=== PATIENT | male | born 1995 | race Hispanic/Latino ===

== ENCOUNTER 2018-02-13 14:06 | Observation (INO) | payer OTHER, SELFPAY ==
[2018-02-13] MEDS ORDERED: PROMETHAZINE 25 MG/ML VIAL ONE (14:19)
[2018-02-13] MEDS ORDERED: NA CHLORIDE 0.9% 1,000 ML ONE ×2 (14:19→14:39)
[2018-02-13 14:53] LABS: Absolute Lymphocytes (CBC) 1.5 K/uL (0.7-4.9); Absolute Monocytes 0.6 K/uL (0.1-1.3); Absolute Neutrophil 11.2 K/uL (1.8-8.0); Basophils % 0.3 % (0-1.3); Hematocrit 48.5 % (39.6-49.0); Lymphocytes % 11.2 % (15.3-44.8); MCH 30.9 pg (27.0-35.0); MCV 91.5 fL (80-100); MPV 8.7 fL (7.6-11.3); Monocytes % 4.2 % (3.3-12.3); RBC Red Blood Cell Count 5.31 M/uL (4.33-5.43)
[2018-02-13] MEDS ORDERED: ONDANSETRON 4 MG/2 ML VIAL ONE ×2 (14:58→21:56)
[2018-02-13 15:04] LABS: Bicarbonate 20 mEq/L (21-31); Glucose Level 87 mg/dL (65-120); Lipase 27 U/L (22-51); Potassium 3.3 mEq/L (3.6-5.0); Sodium Level 139 mEq/L (135-145)
[2018-02-13 15:10] LABS: ALT/SGPT 23 IU/L (10-60); AST/SGOT 34 IU/L (10-42); Albumin 4.9 g/dL (3.2-5.5); Alkaline Phosphatase 80 IU/L (42-121); BUN Blood Urea Nitrogen 17 mg/dL (6-20); Bilirubin Direct 0.2 mg/dL (0-0.2); Bilirubin Total 1.2 mg/dL (0.3-1.2); Protein, Total 7.5 g/dL (6.0-8.3)
[2018-02-13] MEDS ORDERED: MEPERIDINE HCL 25 MG/0.5 ML ONE (15:33)
--- NOTE | 2018-02-13 16:46 | RAD REPORT ---
EXAM DESCRIPTION: CT - Abdomen Pelvis W Contrast - 02/13/2018 4:32 pm CLINICAL HISTORY: Abdominal pain/upper abdominal pain with vomiting and diarrhea for 3 hours COMPARISON: none. TECHNIQUE: Computed axial tomography of the abdomen pelvis was obtained. 100 cc Isovue-300 was admin istered intravenously. Oral contrast was not requested which limits evaluation of bowel. All CT scans are performed using dose optimization technique as appropriate and may include automated exposure control or mA/KV adjustment according to patient size. FINDINGS: The liver has a diminished attenuation consistent with fatty infiltration. Spleen, pancreas, adrenal and kidneys appear unremarkable. There is no evidence of diverticulitis. The appendix is normal IMPRESSION: No acute abnormality is displayed.
[2018-02-13 17:33] LABS: Barbiturates NEGATIVE (NEGATIVE); Benzodiazepines NEGATIVE (NEGATIVE); Cocaine NEGATIVE (NEGATIVE); METHAMPHETAM NEGATIVE (NEGATIVE); Opiates NEGATIVE (NEGATIVE); Phencyclidine NEGATIVE (NEGATIVE); THC Cannibis POSITIVE (NEGATIVE)
[2018-02-13 19:26] LABS: Urine Blood NEGATIVE (NEG); Urine Glucose NEGATIVE (NEG); Urine Protein NEGATIVE (NEG); Urine Specific Gravity 1.015 (1.005-1.030)
--- NOTE | 2018-02-13 19:34 | EDPHYS ---
Physician Documentation [facility] Name: Rj Burch Age: 22 yrs Sex: Male : 1995 Arrival Date: 02/13/2018 Time: 14:08 Bed 19 Private MD: None, None ED Physician Washington Livingston HPI: 02/13 14:55 This 22 yrs old Male presents to ER via Ambulatory with complaints of jr8 Abdominal Pain, Vomiting. 14:55 The patient presents with abdominal pain in the epigastric area. Onset: The jr8 symptoms/episode began/occurred acutely, today. The symptoms do not radiate. Associated signs and symptoms: Pertinent positives: nausea, vomiting, and diarrhea. The symptoms are described as crampy. Modifying factors: The symptoms are alleviated by nothing, the symptoms are aggravated by nothing. Severity of pain: At its worst the pain was moderate in the emergency department the pain is unchanged. The patient has not experienced similar symptoms in the past. The patient has not recently seen a physician. Patient and girlfriend stated that they are visiting from out of town. Stated that they had alcohol last night. Had been in the sun all day. Stated that he started to vomit this morning and cannot stop. Having abdominal cramping . Historical: - Allergies: 14:13 Sulfa (Sulfonamide Antibiotics); hb - Immunization history:: Adult Immunizations up to date. - Social history:: Smoking status: Patient uses tobacco products, smokes one pack cigarettes per day. - Ebola Screening: : No symptoms or risks identified at this time. ROS: 14:55 Eyes: Negative for injury, pain, redness, and discharge, ENT: Negative for injury, jr8 pain, and discharge, Neck: Negative for injury, pain, and swelling, Cardiovascular: Negative for chest pain, palpitations, and edema, Respiratory: Negative for shortness of breath, cough, wheezing, and pleuritic chest pain, Back: Negative for injury and pain, MS/Extremity: Negative for injury and deformity, Skin: Negative for injury, rash, and discoloration, Neuro: Negative for headache, weakness, numbness, tingling, and seizure. 14:55 Abdomen/GI: Positive for abdominal pain, nausea, vomiting, and diarrhea, abdominal cramps, Negative for abdominal distension, anorexia, dysphagia, hematemesis, black/tarry stool, rectal pain, rectal bleeding, bowel incontinence, flatulence. Exam: 14:55 Eyes: Pupils equal round and reactive to light, extra-ocular motions intact. Lids and jr8 lashes normal. Conjunctiva and sclera are non-icteric and not injected. Cornea within normal limits. Periorbital areas with no swelling, redness, or edema. ENT: Nares patent. No nasal discharge, no septal abnormalities noted. Tympanic membranes are normal and external auditory canals are clear. Oropharynx with no redness, swelling, or masses, exudates, or evidence of obstruction, uvula midline. Mucous membranes moist. Neck: Trachea midline, no thyromegaly or masses palpated, and no cervical lymphadenopathy. Supple, full range of motion without nuchal rigidity, or vertebral point tenderness. No Meningismus. Cardiovascular: Regular rate and rhythm with a normal S1 and S2. No gallops, murmurs, or rubs. Normal PMI, no JVD. No pulse deficits. Respiratory: Lungs have equal breath sounds bilaterally, clear to auscultation and percussion. No rales, rhonchi or wheezes noted. No increased work of breathing, no retractions or nasal flaring. Back: No spinal tenderness. No costovertebral tenderness. Full range of motion. Skin: Warm, dry with normal turgor. Normal color with no rashes, no lesions, and no evidence of cellulitis. MS/ Extremity: Pulses equal, no cyanosis. Neurovascular intact. Full, normal range of motion. Neuro: Awake and alert, GCS 15, oriented to person, place, time, and situation. Cranial nerves II-XII grossly intact. Motor strength 5/5 in all extremities. Sensory grossly intact. Cerebellar exam normal. Normal gait. 14:55 Abdomen/GI: Inspection: abdomen appears normal, Bowel sounds: active, all quadrants, Palpation: soft, in all quadrants, mild abdominal tenderness, in the abdomen diffusely, mass, is not appreciated, rebound tenderness, is not appreciated, voluntary guarding, is not appreciated, involuntary guarding, is not appreciated, no appreciated organomegaly, Indicators: McBurney's point is not tender, Martin's sign is negative, Rovsing's sign is negative, Liver: no appreciated palpable abnormalities, tenderness, is not appreciated. Vital Signs: 14:12 BP 140 / 100; Pulse 118; Resp 22; Temp 97.5(O); Pulse Ox 100% ; Weight 83.91 kg; Height hb 5 ft. 8 in. (172.72 cm); Pain 10/10; 15:15 em 15:26 BP 126 / 67; Pulse 110; Resp 22; Pulse Ox 99% on R/A; Pain 10/10; em 16:07 BP 129 / 70; Pulse 111; Resp 16; Temp 97.5(O); Pulse Ox 100% on R/A; Pain 10/10; em 17:23 BP 92 / 80; Pulse 114; Resp 18; Pulse Ox 100% on R/A; ag 18:15 BP 129 / 66; Pulse 114; Resp 18; Pulse Ox 99% on R/A; em 19:24 BP 122 / 58; Pulse 112; Resp 20 S; Pulse Ox 99% on R/A; Pain 10/10; jd3 20:56 BP 125 / 62; Pulse 113; Resp 21 S; Pulse Ox 100% on R/A; Pain 10/10; jd3 22:11 BP 126 / 67; Pulse 113; Resp 20 S; Pulse Ox 95% on R/A; Pain 5/10; jd3 14:12 Body Mass Index 28.13 (83.91 kg, 172.72 cm) hb 15:15 unable to obtain, pt rolling in stretcher, vomiting em MDM: 14:13 Patient medically screened. jr8 19:31 Data reviewed: vital signs, nurses notes, lab test result(s), radiologic studies, CT jr8 scan, and as a result, I will admit patient. Data interpreted: Pulse oximetry: on room air is 99 %. Interpretation: normal. Counseling: I had a detailed discussion with the patient and/or guardian regarding: the historical points, exam findings, and any diagnostic results supporting the discharge/admit diagnosis, lab results, radiology results, the need for further work-up and treatment in the hospital. Response to treatment: the patient's symptoms have mildly improved after treatment. ED course: Patient reexamined. Could not tolerate PO fluids. Still sweating, uncomfortable, and tachycardic. Has been able to urinate after IV fluids. I do not believe this patient is fit to go home. Is from out of town. Dr. Rock consulted and agrees and will admit patient . 02/13 14:15 Order name: Basic Metabolic Panel; Complete Time: 15:37 [facility] 02/13 14:15 Order name: CBC with Diff; Complete Time: 15:00 [facility] 02/13 14:15 Order name: Creatinine for Radiology; Complete Time: 15:09 02/13 14:15 Order name: Hepatic Function; Complete Time: 15:37 02/13 14:15 Order name: Lipase; Complete Time: 15:37 [facility] 02/13 16:55 Order name: UDS; Complete Time: 17:35 [facility] 02/13 15:27 Order name: CT Abd/Pelvis - W/Contrast; Complete Time: 16:53 [facility] 02/13 17:34 Order name: Urine Dipstick--Ancillary (enter results); Complete Time: 19:30 02/13 18:28 Order name: Ethanol; Complete Time: 19:14 iw 02/13 14:15 Order name: IV Saline Lock; Complete Time: 14:27 [facility] 02/13 14:15 Order name: Labs collected and sent; Complete Time: 14:27 [facility] 02/13 14:15 Order name: Urine Dipstick-Ancillary (obtain specimen); Complete Time: 17:48 Administered Medications: 14:25 Drug: NS 0.9% 1000 ml Route: IV; Rate: 1000 ml; Site: right forearm; em 15:30 Follow up: IV Status: Completed infusion; IV Intake: 1000ml em 14:26 Drug: Phenergan 25 mg Route: IVP; Site: right forearm; iw 14:30 Follow up: Response: No adverse reaction; Nausea unchanged em 14:44 Drug: NS 0.9% 1000 ml Route: IV; Rate: 1000 ml; Site: left forearm; em 16:35 Follow up: IV Status: Completed infusion; IV Intake: 1000ml em 15:01 Drug: Zofran 8 mg Route: IVP; Site: left forearm; iw 15:28 Follow up: Response: No adverse reaction; Nausea is decreased em 15:37 Drug: Demerol 25 mg Route: IVP; Site: left forearm; iw 16:35 Follow up: Response: No adverse reaction em 17:02 Drug: NS 0.9% 1000 ml Route: IV; Rate: 1000 ml; Site: right forearm; em 20:58 Follow up: Response: No adverse reaction; IV Status: Completed infusion; IV Intake: jd3 1000ml 19:44 Drug: Ativan 1 mg Route: IVP; Site: right forearm; jd3 20:58 Follow up: Response: No adverse reaction jd3 19:45 Drug: Pepcid 20 mg Route: IVP; Site: right forearm; jd3 20:59 Follow up: Response: No adverse reaction jd3 22:00 Follow up: Response: No adverse reaction jd3 22:01 Drug: morphine 4 mg Route: IVP; Site: right forearm; jd3 22:15 Follow up: Response: No adverse reaction jd3 22:01 Drug: Zofran 4 mg Route: IVP; Site: right forearm; jd3 22:15 Follow up: Response: No adverse reaction jd3 Disposition: 02/14 09:08 Co-signature as Attending Physician, Washington Livingston MD I agree with the assessment and sita plan of care. Disposition: 02/13/18 19:33 Hospitalization ordered by Shaan Rock for Observation. Preliminary diagnosis are Dehydration, Gastroenteritis, Intractable Vomiting . - Bed requested for Telemetry/MedSurg (observation). - Status is Observation. jd3 - Condition is Fair. - Problem is new. - Symptoms have improved. UTI on Admission? No Signatures: Dispatcher [employer] EDMS Rosalie Fowler RN RN mw Anderson, Corey, MD MD cha Munoz, Edgar, FARM OR RANCH ANIMAL CARETAKER FARM OR [employer]CH ANIMAL CARETAKER Hali Cabrera RN RN iw Roszak, Josh, PA PA jr8 Naomy Gutierrez RN RN hb Davies, Jonathon, RN RN jd3 Corrections: (The following items were deleted from the chart) 02/13 19:40 19:33 Hospitalization Ordered by Shaan Rock MD for Observation. Preliminary mw diagnosis is Dehydration; Gastroenteritis; Intractable Vomiting . Bed requested for Telemetry/MedSurg (observation). Status is Observation. Condition is Fair. Problem is new. Symptoms have improved. UTI on Admission? No. jr8 22:38 19:40 02/13/2018 19:33 Hospitalization Ordered by Shaan Rock MD for Observation. jd3 Preliminary diagnosis is Dehydration; Gastroenteritis; Intractable Vomiting . Bed requested for Telemetry/MedSurg (observation). Status is Observation. Condition is Fair. Problem is new. Symptoms have improved. UTI on Admission? No. mw
--- NOTE | 2018-02-13 19:34 | ER ---
Nurse's Notes [facility] Name: Rj Burch Age: 22 yrs Sex: Male : 1995 Arrival Date: 02/13/2018 Time: 14:08 Bed 19 Private MD: None, None Diagnosis: Dehydration;Gastroenteritis;Intractable Vomiting Presentation: 02/13 14:12 Presenting complaint: Patient states: Severe upper abdominal pain and N/V/D x 3 hrs. hb Transition of care: patient was not received from another setting of care. Onset of symptoms was February 13, 2018. Risk Assessment: Do you want to hurt yourself or someone else? Patient reports no desire to harm self or others. Care prior to arrival: None. 14:12 Method Of Arrival: Ambulatory hb 14:12 Acuity: AKBAR 3 hb 17:55 Initial Sepsis Screen: Does the patient meet any 2 criteria? No. Patient's initial em sepsis screen is negative. Does the patient have a suspected source of infection? No. Patient's initial sepsis screen is negative. Historical: - Allergies: 14:13 Sulfa (Sulfonamide Antibiotics); hb - Immunization history:: Adult Immunizations up to date. - Social history:: Smoking status: Patient uses tobacco products, smokes one pack cigarettes per day. - Ebola Screening: : No symptoms or risks identified at this time. Screenin:09 Abuse screen: no apparent signs noted. Nutritional screening: No deficits noted. em Tuberculosis screening: No symptoms or risk factors identified. Fall Risk None identified. Assessment: 14:15 General: Appears uncomfortable, Behavior is anxious, restless. Pain: Unable to use pain em scale. currently vomiting. Neuro: Level of Consciousness is awake, alert. Respiratory: Airway is patent Respiratory effort is even. GI: Pt is actively vomiting bile, x 3 times, pt sticking finger down throat, instructed not to put finger down throat. Derm: Skin is clammy, Skin is normal. 14:30 GI: Abdomen is tender to palpation X 4 quads. Reports vomiting, since this morning. em 15:34 Reassessment: Patient appears in no apparent distress at this time. I agree with above iw assessment by Ernesto Daniels LVN, pt appears more relaxed, no vomiting noted, pt still having nausea, and abd pain 10/10, Saúl ZARAGOZA notified, family remains at bedside, 2nd liter NS complete. 16:08 Reassessment: Patient appears in no apparent distress at this time. Patient and/or em family updated on plan of care and expected duration. Pain level reassessed. c/o nausea and pain, NIK Hays notified, resting calmly in bed, awaiting CT. 17:00 Reassessment: Patient appears in no apparent distress at this time. Patient and/or em family updated on plan of care and expected duration. Pain level reassessed. 18:01 Reassessment: Patient appears in no apparent distress at this time. c/o nausea and abd em pain. 18:13 Reassessment: awaiting completion of 3rd NS bolus, resting in bed, no vomiting noted. em 19:23 Reassessment: Patient appears in no apparent distress at this time. Patient and/or jd3 family updated on plan of care and expected duration. Pain level reassessed. pt reporting throwing up, provider notified. provider at bedside discussing plan of care. Patient states symptoms have not improved. 22:12 Reassessment: Patient appears in no apparent distress at this time. Patient and/or jd3 family updated on plan of care and expected duration. Pain level reassessed. Patient is alert, oriented x 3, equal unlabored respirations, skin warm/dry/pink. pt reported understanding of need for admission. Patient states feeling better. Vital Signs: 14:12 BP 140 / 100; Pulse 118; Resp 22; Temp 97.5(O); Pulse Ox 100% ; Weight 83.91 kg; Height hb 5 ft. 8 in. (172.72 cm); Pain 10/10; 15:15 em 15:26 BP 126 / 67; Pulse 110; Resp 22; Pulse Ox 99% on R/A; Pain 10/10; em 16:07 BP 129 / 70; Pulse 111; Resp 16; Temp 97.5(O); Pulse Ox 100% on R/A; Pain 10/10; em 17:23 BP 92 / 80; Pulse 114; Resp 18; Pulse Ox 100% on R/A; ag 18:15 BP 129 / 66; Pulse 114; Resp 18; Pulse Ox 99% on R/A; em 19:24 BP 122 / 58; Pulse 112; Resp 20 S; Pulse Ox 99% on R/A; Pain 10/10; jd3 20:56 BP 125 / 62; Pulse 113; Resp 21 S; Pulse Ox 100% on R/A; Pain 10/10; jd3 22:11 BP 126 / 67; Pulse 113; Resp 20 S; Pulse Ox 95% on R/A; Pain 5/10; jd3 14:12 Body Mass Index 28.13 (83.91 kg, 172.72 cm) hb 15:15 unable to obtain, pt rolling in stretcher, vomiting em ED Course: 14:08 Patient arrived in ED. mr 14:08 None, None is Private Physician. mr 14:12 Triage completed. hb 14:13 Saúl Roa PA is PHCP. jr8 14:13 Washington Livingston MD is Attending Physician. jr8 14:13 Arm band placed on right wrist. hb 14:15 Ernesto Daniels LVN is Primary Nurse. em 14:20 Initial lab(s) drawn, by me, sent to lab. Inserted saline lock: 18 gauge in right iw forearm, using aseptic technique. Blood collected. 14:45 Lab(s) recollected, by ED staff, sent to lab. iw 14:45 Inserted saline lock: 18 gauge in left forearm, using aseptic technique. Blood em collected. 15:04 Patient has correct armband on for positive identification. Bed in low position. Side em rails up X2. Adult w/ patient. 16:09 No provider procedures requiring assistance completed. em 16:32 CT Abd/Pelvis - W/Contrast In Process Unspecified. EDMS 16:48 Urine collected: clean catch specimen, clear. em 19:24 Primary Nurse role handed off by Ernesto Daniels LVN rg2 19:33 Shaan Rock MD is Hospitalizing Provider. jr8 19:34 Bryon Harris RN is Primary Nurse. jd3 22:12 Patient admitted, IV remains in place. jd3 Administered Medications: 14:25 Drug: NS 0.9% 1000 ml Route: IV; Rate: 1000 ml; Site: right forearm; em 15:30 Follow up: IV Status: Completed infusion; IV Intake: 1000ml em 14:26 Drug: Phenergan 25 mg Route: IVP; Site: right forearm; iw 14:30 Follow up: Response: No adverse reaction; Nausea unchanged em 14:44 Drug: NS 0.9% 1000 ml Route: IV; Rate: 1000 ml; Site: left forearm; em 16:35 Follow up: IV Status: Completed infusion; IV Intake: 1000ml em 15:01 Drug: Zofran 8 mg Route: IVP; Site: left forearm; iw 15:28 Follow up: Response: No adverse reaction; Nausea is decreased em 15:37 Drug: Demerol 25 mg Route: IVP; Site: left forearm; iw 16:35 Follow up: Response: No adverse reaction em 17:02 Drug: NS 0.9% 1000 ml Route: IV; Rate: 1000 ml; Site: right forearm; em 20:58 Follow up: Response: No adverse reaction; IV Status: Completed infusion; IV Intake: jd3 1000ml 19:44 Drug: Ativan 1 mg Route: IVP; Site: right forearm; jd3 20:58 Follow up: Response: No adverse reaction jd3 19:45 Drug: Pepcid 20 mg Route: IVP; Site: right forearm; jd3 20:59 Follow up: Response: No adverse reaction jd3 22:00 Follow up: Response: No adverse reaction jd3 22:01 Drug: morphine 4 mg Route: IVP; Site: right forearm; jd3 22:15 Follow up: Response: No adverse reaction jd3 22:01 Drug: Zofran 4 mg Route: IVP; Site: right forearm; jd3 22:15 Follow up: Response: No adverse reaction jd3 Intake: 15:30 IV: 1000ml; Total: 1000ml. em 16:35 IV: 1000ml; Total: 2000ml. em 20:58 IV: 1000ml; Total: 3000ml. jd3 Outcome: 19:33 Decision to Hospitalize by Provider. kililan 22:10 Admitted to Med/surg accompanied by tech, via wheelchair, room 416, with chart, Report jd3 called to Maria Elena CORREA 22:10 Condition: stable 22:10 Instructed on the need for admit, Demonstrated understanding of instructions. 22:38 Patient left the ED. jd3 Signatures: Dispatcher [employer] Yanira Gil2 Debbie Jones mr Daniels, Ernesto, LIGHT RAIL TRAIN OPERATOR LIGHT RAIL TRAIN OPERATOR em Hali Liang RN RN iw Saúl Roa PA PA jr8 Danita Marinelli Heather, RN RN Bryon Harris RN RN jd3 Corrections: (The following items were deleted from the chart) 15:50 14:15 General: Appears uncomfortable, Behavior is em em
[2018-02-13] MEDS ORDERED: LORazepam 2 MG/ML VIAL ONE (19:39)
[2018-02-13] MEDS ORDERED: FAMOTIDINE 20 MG/2 ML VIAL IV ONE (19:39)
[2018-02-13] MEDS ORDERED: LORazepam 2 MG/ML VIAL IV ONE (20:28)
[2018-02-13] MEDS ORDERED: ACETAMINOPHEN 500 MG TAB PO PRN (20:28)
[2018-02-13] MEDS ORDERED: MORPHINE 2 MG/ML SYR IV PRN (20:28)
[2018-02-13] MEDS ORDERED: NA CHLORIDE 0.9% 1,000 ML IV SCH (21:00)
[2018-02-13] MEDS ORDERED: MORPHINE 4 MG/ML SYR ONE (21:56)
[2018-02-13 23:24] VITALS: O2SAT 95
[2018-02-14] MEDS ORDERED: MORPHINE 4 MG/ML SYR ONE (01:09)
[2018-02-14] MEDS: ONDANSETRON 4 MG/2 ML VIAL IV PRN ×2 (01:12→04:55)
[2018-02-14] MEDS ORDERED: MORPHINE 4 MG/ML SYR IV PRN (02:00)
[2018-02-14 02:43] VITALS: BMI 28.1
[2018-02-14] MEDS ORDERED: NA CHLORIDE 0.9% 1,000 ML IV SCH (04:00)
[2018-02-14 04:58] LABS: Absolute Lymphocytes (CBC) 0.7 K/uL (0.7-4.9); Absolute Monocytes 0.3 K/uL (0.1-1.3); Absolute Neutrophil 11.8 K/uL (1.8-8.0); Basophils % 0.1 % (0-1.3); Hematocrit 43.1 % (39.6-49.0); Lymphocytes % 5.3 % (15.3-44.8); MCH 31.4 pg (27.0-35.0); MCV 91.9 fL (80-100); Monocytes % 2.7 % (3.3-12.3); RBC Red Blood Cell Count 4.69 M/uL (4.33-5.43)
[2018-02-14 05:08] LABS: ALT/SGPT 21 IU/L (10-60); AST/SGOT 30 IU/L (10-42); Albumin 4.5 g/dL (3.2-5.5); Alkaline Phosphatase 73 IU/L (42-121); BUN Blood Urea Nitrogen 13 mg/dL (6-20); Bicarbonate 24 mEq/L (21-31); Glucose Level 113 mg/dL (65-120); Magnesium 1.9 mg/dL (1.8-2.5); Phosphorus 3.5 mg/dL (2.5-4.3); Potassium 3.8 mEq/L (3.6-5.0); Protein, Total 7.3 g/dL (6.0-8.3); Sodium Level 135 mEq/L (135-145)
[2018-02-14] MEDS ORDERED: POTASSIUM CL SA 10 MEQ TAB PO ONE (05:40)
[2018-02-14 06:10] LABS: Blood Morphology Comment NOT SEEN (NOT SEEN); Platelet Estimate ADEQ
[2018-02-14 08:39] VITALS: BP 137/54; TEMP 97.9
--- NOTE | 2018-02-14 08:45 | P.HP ---
Certification for Inpatient Patient admitted to: Observation With expected LOS: <2 Midnights Patient will require the following post-hospital care: None Practitioner: I am a practitioner with admitting privileges, knowledge of patient current condition, hospital course, and medical plan of care. Services: Services provided to patient in accordance with Admission requirements found in Title 42 Section 412.3 of the Code of Federal Regulations Patient History Date of Service: 02/13/18 Reason for admission: Intractable nausea and vomiting History of Present Illness: Patient is a 22-year-old gentleman who presents to the hospital with intractable nausea and vomiting. Patient had been visiting of [facility] with his family. He had been drinking and smoking marijuana. When he did this before he was told he had liver disease. He had not had much to drink over the last couple of years. However, at the [facility] he did drink quite a bit. He has also been smoking marijuana regularly. It is possible he could have cannabis vomiting syndrome will go ahead and continue him on hydration and anti emetics any evaluate him over the next 24-48 hr. If he does well will start him on a diet and if he tolerates it then he should be able to go home. Allergies Sulfa (Sulfonamide Antibiotics) Allergy (Verified 02/13/18 19:50) Shortness of breath Home Medications: NK [No Home Meds] 02/13/18 - Past Medical/Surgical History Diabetic: No Past Medical History: Patient denies medical history Past Surgical History: Patient denies surgical history - Family History Mother Family History: Reviewed- Non-Contributory Notes: pt denies any medical history for his mother Father Family History: Reviewed- Non-Contributory Notes: pt denies any medical history for his father - Social History Smoking Status: Current every day smoker Alcohol use: Yes CD- Drugs: Yes Caffeine use: Yes Place of Residence: Home Review of Systems 10-point ROS is otherwise unremarkable Physical Examination - Vital Signs Temperature: 97.9 F Blood Pressure: 137/54 Pulse: 93 Respirations: 18 Pulse Ox (%): 100 - Physical Exam General: Alert, In no apparent distress, Oriented x3 HEENT: Atraumatic, PERRLA, Mucous membr. moist/pink, EOMI, Sclerae nonicteric Neck: Supple, 2+ carotid pulse no bruit, No LAD, Without JVD or thyroid abnormality Respiratory: Clear to auscultation bilaterally, Normal air movement Cardiovascular: Regular rate/rhythm, Normal S1 S2, No murmurs Gastrointestinal: Normal bowel sounds, Soft and benign, Non-distended, No tenderness Musculoskeletal: No clubbing, No swelling, No tenderness Integumentary: No rashes Neurological: Normal gait, Normal speech, Normal strength at 5/5 x4 extr, Normal tone, Normal affect Lymphatics: No axilla or inguinal lymphadenopathy - Studies Laboratory Data (last 24 hrs) 02/13/18 14:40: Creatinine 0.91 02/13/18 14:40: WBC 13.4 H, Hgb 16.4, Hct 48.5, Plt Count 237 02/13/18 14:40: Sodium 139, Potassium 3.3 L, BUN 17, Creatinine 0.98, Glucose 87 , Total Bilirubin 1.2, AST 34, ALT 23, Alkaline Phosphatase 80, Lipase 27 Assessment & Plan - Problems (Diagnosis) (1) Cannabis hyperemesis syndrome concurrent with and due to cannabis abuse Current Visit: Yes Status: Acute (2) Alcohol abuse Current Visit: Yes Status: Acute - Plan Plan: 1. IV hydration 2. Anti emetics 3. Refrain from marijuana and alcohol abuse 4. Monitor electrolytes 5. Start diet in the morning 6. If patient tolerates his diet possible discharge 7. GI and DVT prophylaxis Discharge Plan: Home Plan to discharge in: 24 Hours - Advance Directives Does patient have a Living Will: No Does patient have a Durable POA for Healthcare: No - Code Status/Comfort Care Code Status Assessed: Yes Code Status: Full Code Critical Care: No Time Spent Managing PTS Care (In Minutes): 50
--- NOTE | 2018-02-15 07:33 | P.DS ---
Discharge Date: 02/14/18 Disposition: ROUTINE DISCHARGE Discharge Condition: GOOD Reason for Admission: Intractable nausea and vomiting - Problems (1) Cannabis hyperemesis syndrome concurrent with and due to cannabis abuse Onset Date: 02/14/18 Status: Acute (2) Alcohol abuse Onset Date: 02/14/18 Status: Acute Brief History of Present Illness: Patient is a 22-year-old gentleman who presents to the hospital with intractable nausea and vomiting. Patient had been visiting of [facility] with his family. He had been drinking and smoking marijuana. When he did this before he was told he had liver disease. He had not had much to drink over the last couple of years. However, at the [facility] he did drink quite a bit. He has also been smoking marijuana regularly. It is possible he could have cannabis vomiting syndrome will go ahead and continue him on hydration and anti emetics any evaluate him over the next 24-48 hr. If he does well will start him on a diet and if he tolerates it then he should be able to go home. Hospital Course: Patient's symptoms resolved completely. Patient is stable for discharge home with outpatient follow-up. Patient is advised to refrain from marijuana use. Vital Signs/Physical Exam: Temp Pulse Resp BP Pulse Ox 97.9 F 93 H 18 137/54 L 100 02/14/18 08:45 02/14/18 08:45 02/14/18 08:45 02/14/18 08:45 02/14/18 08:45 General: Alert, In no apparent distress, Oriented x3 Laboratory Data at Discharge: WBC 12.8 K/uL (4.3-10.9) H 02/14/18 03:58 Hgb 14.7 g/dL (13.6-17.9) 02/14/18 03:58 Hct 43.1 % (39.6-49.0) 02/14/18 03:58 Plt Count 214 K/uL (152-406) 02/14/18 03:58 Sodium 135 mEq/L (135-145) 02/14/18 03:58 Potassium 3.8 mEq/L (3.6-5.0) 02/14/18 03:58 BUN 13 mg/dL (6-20) 02/14/18 03:58 Creatinine 0.79 mg/dL (0.61-1.24) 02/14/18 03:58 Glucose 113 mg/dL (65-120) 02/14/18 03:58 Phosphorus Cancelled 02/14/18 06:00 Magnesium Cancelled 02/14/18 06:00 Total Bilirubin 2.0 mg/dL (0.3-1.2) H 02/14/18 03:58 AST 30 IU/L (10-42) 02/14/18 03:58 ALT 21 IU/L (10-60) 02/14/18 03:58 Alkaline Phosphatase 73 IU/L (42-121) 02/14/18 03:58 Lipase 27 U/L (22-51) 02/13/18 14:40 Home Medications: Ondansetron HCl [Zofran] 4 mg PO Q4HP PRN #20 tablet 02/14/18 New Medications: Ondansetron HCl [Zofran] 4 mg PO Q4HP PRN #20 tablet PRN Reason: Nausea / Vomiting Patient Discharge Instructions: OK TO DC IV AND DC HOME. FOLLOW-UP WITH PRIMARY CARE PROVIDER IN 1-2 WEEKS. FOLLOW-UP WITH CARDIOLOGY IN 1-2 WEEKS. RETURN TO THE ER IF symptoms worsen. CALL or TEXT DR. BENEDICT AT [phone] IF ANY QUESTIONS REGARDING HOSPITAL STAY. PLEASE CALL THE FLOOR AT [phone] IF ANY MEDICATION OR NURSING QUESTIONS. Diet: Regular Activity: Fall precautions Time spent managing pt's care (in minutes): 25
== END 2018-02-14 10:24 | disposition home or self-care (01) ==
LOC: ER 14:06 → ERHOLD 19:43 → 4TH 20:35
PROVIDERS: ADMIT Hospitalist; ATTEND Hospitalist
DX: F12.188 Cannabis abuse with other cannabis-induced disorder (principal); F10.10 Alcohol abuse, uncomplicated; R11.2 Nausea with vomiting, unspecified; Z88.2 Allergy status to sulfonamides
CPT/HCPCS: 36415; 74177; 80048; 80053; 80076; 80307; 80320; 81003; 83690; 83735; 84100; 85025; 99285; G0378; J2175; J2405; J2550; J7030; Q9967